=== PATIENT | female | born 1985 | race Caucasian/White ===

== ENCOUNTER 2019-06-11 12:27 | Emergency (ER) | payer OTHER, SELFPAY ==
[2019-06-11 12:38] VITALS: BP 131/76; PULSE 102; RESP 16; TEMP 36.9; O2SAT 100
--- NOTE | 2019-06-11 12:45 | ED.GENADULT ---
HPI - General Adult General Chief complaint: Extremity Injury, Lower Stated complaint: Swollen ankle/stress fracture Time Seen by Provider: 06/11/19 12:45 Source: patient Mode of arrival: ambulatory Limitations: no limitations History of Present Illness HPI narrative: 33-year-old female patient presents to the [facility] with complaints of right foot pain. Patient states she has had this pain now for the past 3 months. 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 Patient states that she has been taking Tylenol, ibuprofen. Patient states she tried getting some inserts for her shoes as well as wrapping her foot a couple times. Patient states that her foot has the most pain the first thing in the morning when she tries to stand. Patient denies any specific injury to the foot or ankle. Related Data Home Medications Medication Instructions Recorded Confirmed No Home Medications 06/11/19 06/11/19 Allergies Allergy/AdvReac Type Severity Reaction Status Date / Time No Known Allergies Allergy Unverified 06/11/19 12:46 Review of Systems Review of Systems: Narrative: CONSTITUTIONAL: Denies fever, chills, or sweats. EYES: Denies visual changes, redness, or discharge. ENT: Denies rhinorrhea, congestion, sore throat, or otalgia. CARDIOVASCULAR: Denies chest pain, palpitations, or edema. RESPIRATORY: Denies cough or dyspnea. GASTROINTESTINAL: Denies abdominal pain, nausea, vomiting, or diarrhea. GENITOURINARY: Denies dysuria or hematuria. SKIN: Denies rash or itching. MUSCULOSKELETAL: Denies back pain, joint pain, or myalgia. Positive right foot pain x3 months NEUROLOGIC: Denies headache, numbness, or weakness. PSYCHIATRIC: Denies anxiety or depression. PMFSH Social History Social History Gender identity (if verbalized by the patient): Female Comments At the time of my signature I agree with nursing past medical history, surgical, social, and family history. There is no relevant family history pertinent to the presenting complaint. Exam Narrative: Exam Narrative: GENERAL: Well-appearing, well-nourished, and in no acute distress. HEAD: Normocephalic, atraumatic. EYES: PERRLA and EOMI. ENT: Nares clear, no rhinorrhea or epistaxis. Mucous membranes moist. NECK: Supple. No lymphadenopathy CHEST: Clear to auscultation. No respiratory distress. HEART: Regular rate and rhythm. No murmur heard. Normal peripheral pulses. ABDOMEN: Soft, nontender, nondistended, normal active bowel sounds. EXTREMITIES: Patient able to bear weight and ambulate but has increased pain of the right foot. No surface trauma, ecchymosis, erythema, lesions, ulcers or break in skin integrity. The R foot is without obvious asymmetry or deformity when compared to the L foot. No bony step-off, nontender to palpation over the toes, midfoot, patient does have pain on palpation to the hindfoot, sole and right in the middle of the arch. Normal plantar/dorsiflexion, inversion/eversion. Distal motor and neurovascular status are intact SKIN: Warm, dry, no rash. NEURO: No focal deficits. Alert and oriented x3. Course Vital Signs Vital signs: Vital Signs Temperature 36.9 C 06/11/19 12:38 Pulse Rate 102 H 06/11/19 12:38 Respiratory Rate 16 06/11/19 12:38 Blood Pressure 131/76 06/11/19 12:38 Pulse Oximetry 100 06/11/19 12:38 Temperature 36.9 C 06/11/19 12:38 Pulse Rate 102 H 06/11/19 12:38 Respiratory Rate 16 06/11/19 12:38 Blood Pressure 131/76 06/11/19 12:38 Pulse Oximetry 100 06/11/19 12:38 Vital signs reviewed. Medical Decision Making Differential Diagnosis Differential Diagnosis: Differential diagnosis: Foot fracture, crush injury, compartment syndrome, contusion, sprain, tendinitis,lisfranc sprain or fracture, avulsion fracture, grown toenail, diabetic ulcer.
== END 2019-06-11 13:02 | disposition home or self-care (01) ==
PROVIDERS: Emergency Provider Nurse Practitioner Family
DX: M72.2 Plantar fascial fibromatosis (principal)
CPT/HCPCS: 99211; G0463